=== PATIENT | male | born 1990 | race Caucasian/White ===

== ENCOUNTER 2017-08-31 10:34 | Day surgery (SDC) | payer BC ==
[~2017-08-31] VITALS: Ht 185.4 cm; Wt 80.3 kg
[2017-08-31 11:07] VITALS: BP 125/67; PULSE 78; TEMP 98.2
[2017-08-31 15:10] VITALS: BP 127/79; PULSE 70; TEMP 98.6
[2017-08-31 15:25] VITALS: BP 128/80; PULSE 74
[2017-08-31 15:40] VITALS: BP 130/78; PULSE 64
[2017-08-31 15:55] VITALS: BP 126/67; PULSE 58
[2017-08-31 16:10] VITALS: BP 137/76; PULSE 16
[2017-08-31] MEDS ORDERED: ROXICODONE 55 MG/TAB PO (16:21)
== END 2017-08-31 17:10 | disposition home or self-care (01) ==
LOC: SDCO 10:34
DX: K40.91 Unilateral inguinal hernia, without obstruction or gangrene, recurrent (principal); F17.290 Nicotine dependence, other tobacco product, uncomplicated
CPT/HCPCS: A4314; C1781; J0690; J1100; J1885; J2405; J2704; J7120